=== PATIENT | female | born 1945 | race Caucasian/White ===

== ENCOUNTER 2017-09-07 17:21 | Inpatient (IN) | payer MEDICARE ==
[~2017-09-07] VITALS: Ht 160 cm; Wt 84.7 kg
--- NOTE | ~2017-09-07 | PN ---
PATIENT:LISET VALENZUELA MEDICAL RECORD: [id number] LOCATION:D.[facility].211 ADMISSION DATE: 09/07/17 PROGRESS NOTE DATE OF SERVICE: 10/03/2017 HISTORY OF PRESENT ILLNESS: This is a 72-year-old female who has a history of asthma. The patient has had increasing shortness of breath recently, was admitted for shortness of breath and wheezes. Also, has sleep apnea and has a CPAP at home, but rarely uses a CPAP machine. The patient is on BiPAP at night and p.r.n. for the daytime. This patient feels improved, has been in physical therapy today. There is no fever or chills. PHYSICAL EXAMINATION: GENERAL: Reveals a well-developed, well-nourished female patient in no acute distress. VITAL SIGNS: Temperature 98.1, heart rate of 81, respiratory rate of 18, blood pressure 115/63, saturation 96%. SHEENT: Unremarkable. NECK: Supple. No adenopathy. NECK: Trachea is midline. CHEST: Clear. No wheezes or crackles. HEART: Shows no jugular venous distention, murmur, or gallop. ABDOMEN: Benign. EXTREMITIES: Shows no clubbing, cyanosis or edema. LABORATORY DATA: Showed white count 11.9, hemoglobin 8.4. Chest x-ray shows elevation of the right hemidiaphragm, persistent right perihilar and lower lobe airspace disease. ASSESSMENT: 1. Right lower lobe pneumonia. The patient is currently on antibiotics. 2. Asthma. The patient is improving with bronchodilators. 3. Obstructive sleep apnea. The patient is noncompliant with CPAP at home. The patient has been advised to use CPAP every day. She may need to follow up with the pulmonary clinic care. Continue bronchodilators. 4. Continue antibiotics. 5. DVT prophylaxis with Lovenox. 6. Increase physical activity. TRANSINT:[id number] Voice Confirmation ID: [id number] DOCUMENT ID: [id number] FROY ASHFORD at 1307 CC: [id number] DICTATION DATE: 10/03/17 2148 PICKING BELT OPERATOR: 10/04/17 0302 DIS IN 10/06/17 [id number] [place] [address]
--- NOTE | ~2017-09-07 | PN ---
PATIENT:LISET VALENZUELA MEDICAL RECORD: [id number] LOCATION:D.[facility].211 ADMISSION DATE: 09/07/17 PROGRESS NOTE DATE OF SERVICE: 10/04/2017 This is a 72-year-old female who had acute respiratory failure with hypoxemia, has also had asthma in the past. She has had acute kidney injury. SUBJECTIVE: The patient states that her breathing is improved and that she is able to do more physical therapy. She is not coughing. There is no shortness of breath. She is able to walk a little bit more distance today. She has had constipation, requests laxative or stool softener. PHYSICAL EXAMINATION: GENERAL: Physical exam reveals an elderly female who is in no acute distress. VITAL SIGNS: Temperature 98.4, heart rate of 92, respiratory rate 17, blood pressure 142/70, saturation 97%. SHEENT: Unremarkable. NECK: Supple. LUNGS: Clear with no wheezes or crackles. HEART: Exam shows no jugular venous distention, no murmur or gallop. ABDOMEN: Benign without any tenderness, there is mild distention. EXTREMITIES: No clubbing, cyanosis or edema. LABORATORY DATA: White count 10.5, hemoglobin 8.7, and platelet count is 215,000. Arterial blood gas, pH 7.41, pCO2 of 64, pO2 of 115, bicarbonate is 40. Chemistry is remarkable for carbon dioxide of 36, creatinine 2.2. ASSESSMENT: 1. Acute respiratory failure with exacerbation, improved. 2. Metabolic alkalosis. This may be due to dehydration or volume depletion. 3. Obstipation. PLAN: 1. Milk of magnesia for obstipation. 2. May need to increase fluid intake. 3. Continue bronchodilators. DISPOSITION: To rehabilitation. TRANSINT:[id number] Voice Confirmation ID: [id number] DOCUMENT ID: [id number] PROGRESS NOTE [id number] LISET VALENZUELA FROY ASHFORD at 1307 CC: [id number] DICTATION DATE: 10/04/172112 LACTATION NURSE: 10/05/173 DIS IN 10/06/17 [address] [place] [address]
--- NOTE | ~2017-09-07 | MORECARE ---
CASE MANAGEMENT DISCHARGE SUMMARY PATIENT: LISET VALENZUELA UNIT: [id number] ADM DATE: 09/07/17 AGE: 72 : 44 SEX: F ROOM/BED: D.4072 AUTHOR: CASE, MRI CT TECH PHYSICIAN: REFERRING PHYSICIAN: WENDY MILLS MD DATE OF SERVICE: 09/07/17 Discharge Plan Patient Name: LISET VALENZUELA Facility: [facility]:Paulina : 1945 Planned Disposition: Home with Home Health Anticipated Discharge Date: 09/28/17 Discharge Date: Expected LOS: 21 Initial Reviewer: [email or web address] Initial Review Date: 09/12/2017 Generated: 09/28/17 4:17 pm Comments DCP- Discharge Planning Updated by [email or web address]: Akshat Baldwin on 09/28/17 2:[address] Patient Name: LISET VALENZUELA Encounter No: [id number] : 1945 Primary Insurance: [facility] MEDICARE SOLUTIONS Anticipated DC Date: 09-28-2017 Planned Disposition: Home with Home Health External Planned Provider: NO PROVIDER PREFERENCE DCP follow-up note: CM RECEIVED CALL FROM PT'S DAUGHTER IN LAW, JOE MARROQUIN, WHO INFORMED CM THAT PT HAS BEEN DECLINED BY [facility] PT IS TOO HIGH LEVEL FUNCTIONING. CM DISCUSSED OUTPATIENT REHAB VS HOME HEALTH. JOE REPORTS PT WILL NEED HOME HEALTH AND ASKED CM TO TALK TO PT. CM MET WITH PT IN ROOM TO DISCUSS DISCHARGE NEEDS AND PLANNING. CM DISCUSSED AVAILABILITY OF HOME HEALTH, REHAB SERVICES AND MEDICAL EQUIPMENT WELL DECLINATIONS BY INPATIENT REHAB AND [facility].. PT AGREES THAT HOME HEALTH WOULD BE BEST OPTION FOR HER, FAMILY TO TRANSPORT HOME AT DISCHARGE. CHOICE LETTER INDICATING NO PROVIDER PREFERNCE SIGNED BY PT.] CM TO ARRANGE HOME HEALTH FOR OBSERVATION AND ASSESSMENT AND PHYSICAL THERAPY WITH ANY AVAILABLE PROVIDER FOR DISCHARGE HOME WITH PHYSICIAN AGREEMENT AND SPECIFIC HOME HEALTH ORDERS. WARREN Melvin DCP- Discharge Planning Updated by [email or web address]: Askhat Baldwin on 09/27/17 11:[address] Patient Name: LISET VALENZUELA Admission Status: ER Accout number: [id number] Admission Date: 09-07-2017 : 1945 Admission Diagnosis:SHORTNESS OF BREATH Attending: WENDY CEBALLOS Current LOS: 20 Anticipated DC Date: 09-28-2017 Planned Disposition: [facility] Facility Primary Insurance: [facility] MEDICARE SOLUTIONS PLANNED EXTERNAL PROVIDER: [facility] MEDICARE REHAB BED Discharge Planning Comments: CM CALLED [facility], SPOKE TO TYSON AT [phone], REHAB BED AVAILABLE, TYSON AND ADMISSION TEAM WILL SCREEN FOR REHAB ADMISSION. CM FAXED REFERRAL TO [facility] AT [phone]. CM WAITING ADMISSION DETERMINATION AND INSURANCE AUTHORIZATION OR DENIAL FOR REHAB SERVICES AT [facility]. Paraffin Plant Operator: Akshat Baldwin DCP- Discharge Planning Updated by [id number]: Akshat Baldwin on 09/26/17 4:[address] Patient Name: LISET VALENZUELA Encounter No: [id number] : 1945 Primary Insurance: [facility] MEDICARE SOLUTIONS Anticipated DC Date: 09-28-2017 Planned Disposition: [facility] Facility External Planned Provider: [facility] MEDICARE REHAB BED DCP follow-up note: CM SPOKE TO LISET OF INPATIENT REHAB AT [place] LISET REPORTS PHYSICAL AND SPEECH THERAPY HAVE BOTH SIGNED OFF ON PT AND SHE IS TOO HIGH FUNCTIONING FOR INPATIENT REHAB. CM DISCUSSED REHAB OPTIONS, LOCATIONS AND PROVIDERS WITH PT. PT DOES NOT FEEL SAFE TO HOME WITH HOME HEALTH OR TO GO TO OUTPATIENT THERAPY; PT WOULD LIKE REHAB AT [facility] IF POSSIBLE, CHOICE SIGNED. IMPORTANT MESSAGE FROM MEDICARE PROVIDED AND EXPLAINED. CM TO SEND REHAB REFERRAL TO [facility] SOON POSSIBLE. Akshat Baldwin, WARREN MANAGEMENT DCP- Discharge Planning Updated by [id number]: Akshat Baldwin on 09/22/17 3:[address] Patient Name: LISET VALENZUELA Encounter No: [id number] : 1945 Primary Insurance: [facility] MEDICARE SOLUTIONS Anticipated DC Date: 09-23-2017 Planned Disposition: INPATIENT REHAB External Planned Provider: [facility] INPATIENT REHAB DCP follow-up note: CM RECEIVED ORDER FOR INPATIENT REHAB PRESCREENING. CM MET WITH PT AND DAUGHTER IN LAW IN ROOM TO DISCUSS DISCHARGE PLANNING AND NEEDS. LISET D NICOLAS provided verbal consent to discuss current and ongoing needs with/in the presence of: DAUGHTER IN LAW, JOE LOPEZ. CM DISCUSSED AVAILABILITY OF INPATIENT REHAB, PRISON REHAB WELL LOCATIONS AND PROVIDERS. PT WANTS REHAB AT [facility] AND UNDERSTANDS THAT HER INSURANCE HAS TO APPROVE IT WELL REHAB HAVING TO ACCEPT. IMPORTANT MESSAGE FROM MEDICARE PROVIDED AND EXPLAINED. CM WAITING INPATIENT REHAB PRESCREENING WELL INSURANCE AUTHORIZATION OR DENIAL FOR INPATIENT REHAB SERVICES AT [facility]. Akshat Baldwin, CASE MANAGEMENT DCP- Discharge Planning Updated by [id number]: Akshat Baldwin on 09/12/17 3:[address] Patient Name: LISET VALENZUELA Admission Status: ER Accout number: [id number] Admission Date: 09-07-2017 : 1945 Admission Diagnosis: Attending: WENDY CEBALLOS Current LOS: 5 Anticipated DC Date: Planned Disposition: Home Primary Insurance: [facility] MEDICARE SOLUTIONS Discharge Planning Comments: * Is the patient Alert and Oriented? Yes 0 * How many steps to enterexit or inside your home? 2 0 * PCP [facility] OBANDO ON [facility] IN [place] 0 * Pharmacy [facility] OR [facility] ORDER 0 * Preadmission Environment Home Alone 0 * ADLs Independent 0 * Equipment Glucometer 0 * Other Equipment PT'S NEBULIZER 10 YEARS OLD AND INOPERATIVE NO MEDICAL EQUIPMENT PROVIDER PREFERENCE 0 * List name and contact numbers for known caregivers / representatives who currently or will assist patient after discharge: JOE MARROQUIN, DTR IN LAW, CARYN MARROQUIN, SON, 0 * Verbal permission to speak to the caregivers and representatives has been obtained from the patient. Yes 0 * Community resources currently utilized None 0 * Please name any agencies selected above. NONE 0 * Additional services required to return to the preadmission environment? No 0 * Can the patient safely return to the preadmission environment? Yes 0 * Has this patient been hospitalized within the prior 30 days at any hospital? No 0 CM MET WITH PT AND SON IN ROOM TO DISCUSS DISCHARGE PLANNING AND NEEDS. LISET VALENZUELA provided verbal consent to discuss current and ongoing needs with/in the presence of: SON, CARYN MARROQUIN. PT REPORTS LIVING AT HOME INDEPENDENTLY AND ALONE; PT'S 15 YEAR OLD GRAND DAUGHTER HAS BEEN STAYING WITH PT AT HOME TO ASSIST WITH COOKING AND CLEANING, PT'S SON LIVES ABOUT 1 MILE AWAY. PT HAS GLUCOMETER WITH MEDICAL EQUIPMENT PROVIDER PREFERENCE OF [facility] AND NO OUTSIDE SERVICES ASSISTING IN THE HOME. CM DISCUSSED AVAILABILITY OF HOME HEALTH, REHAB SERVICES AND MEDICAL EQUIPMENT. PT REPORTS IF SHE NEEDS NEBULIZED MEDICATIONS, SHE NEEDS A NEW NEBULIZER AND STATES SHE MIGHT NEED OXYGEN TO GO HOME. PT REPORTS HER SON WILL PICK HER UP FOR DISCHARGE HOME. IMPORTANT MESSAGE FROM MEDICARE PROVIDED AND EXPLAINED. IF PT NEEDS NEBULIZED MEDICATIONS AT HOME, SHE WILL NEED NEW NEBULIZER ORDER FOR CM TO OBTAIN FROM [facility]. PT MAY REQUIRE HOME OXYGEN TESTING PRIOR TO DISCHARGE TO DETERMINE HOME NEED. CM TO CONTINUE TO FOLLOW AND ASSIST IF NEEDED. Paraffin Plant Operator: Akshat Baldwin DCPIA - Discharge Planning Initial Assessment Updated by [email or web address]: Akshat Baldwin on 09/12/17 4:11 pm * Is the patient Alert and Oriented? Yes * How many steps to enterexit or inside your home? * PCP [facility] OBANDO ON [facility] [place] * Pharmacy [facility] [place] OR [facility] * Preadmission Environment Home Alone * ADLs Independent * Equipment Glucometer * Other Equipment PT'S NEBULIZER 10 YEARS OLD AND INOPERATIVE NO MEDICAL EQUIPMENT PROVIDER PREFERENCE * List name and contact numbers for known caregivers / representatives who currently or will assist patient after discharge: JOE MARROQUIN, DTR IN LAW, CARYN MARROQUIN, SON, * Verbal permission to speak to the caregivers and representatives has been obtained from the patient. Yes * Community resources currently utilized None * Please name any agencies selected above. NONE * Additional services required to return to the preadmission environment? No * Can the patient safely return to the preadmission environment? Yes * Has this patient been hospitalized within the prior 30 days at any hospital? No External Providers External Provider: [facility] Next Contact Date: 09/27/2017 Service Request Date: Service Type: Resolution: Reviewer: Comments: Coverage Notice Reviewer: [email or web address] - Akshat Baldwin Notice Issued Date-Time: 09/12/2017 15:58 Notice Type: IM Discharge Notice Notice Delivered To: Patient Relationship to Patient: Mobile Device Engineer Name: Delivery Method: HAND - Hand Delivered Mya Days: Prior Verbal Notification: Recipient Understood Notice: Yes Recipient Signature: Yes Med Rec Note Co-signed by Attending: Coverage Notice Comment: Reviewer: GERMAINE Baldwin Notice Issued Date-Time: 09/22/2017 15:30 Notice Type: IM Discharge Notice Notice Delivered To: Family Member Relationship to Patient: Daughter in Law Mobile Device Engineer Name: JOE MARROQUIN Delivery Method: HAND - Hand Delivered Mya Days: Prior Verbal Notification: Recipient Understood Notice: Yes Recipient Signature: Yes Med Rec Note Co-signed by Attending: Coverage Notice Comment: Reviewer: GERMAINE Baldwin Notice Issued Date-Time: 09/26/2017 14:45 Notice Type: IM Discharge Notice Notice Delivered To: Patient Relationship to Patient: Mobile Device Engineer Name: Delivery Method: HAND - Hand Delivered Mya Days: Prior Verbal Notification: Recipient Understood Notice: Yes Recipient Signature: Yes Med Rec Note Co-signed by Attending: Coverage Notice Comment: Reviewer: GERMAINE Baldwin Notice Issued Date-Time: 09/28/2017 15:00 Notice Type: Patient Choice Letter Notice Delivered To: Patient Relationship to Patient: Mobile Device Engineer Name: Delivery Method: HAND - Hand Delivered Mya Days: Prior Verbal Notification: Recipient Understood Notice: Yes Recipient Signature: Yes Med Rec Note Co-signed by Attending: Coverage Notice Comment: NO HOME HEALTH PROVIDER PREFERENCE Patient Name: LISET VALENZUELA Page [phone] All edits/amendments must be made on the electronic document DICTATION DATE: 09/28/171516 [place]EN[place]SE OR NURSERY TRANSPLANTER: 09/28/171516 RPT#: [id number] DC DATE: STATUS: ADM IN [facility] [address] [place] [address] END OF REPORT
--- NOTE | ~2017-09-07 | PN ---
PATIENT:LISET VALENZUELA MEDICAL RECORD: [id number] LOCATION:D. D.211 ADMISSION DATE: 09/07/17 PROGRESS NOTE DATE OF SERVICE: 10/05/2017 SUBJECTIVE: This is a 72-year-old female who has had history of mild aortic stenosis as well as abnormal left ventricular ejection fraction. The patient was admitted for increasing shortness of breath and weakness. We treated with bronchodilators. With bronchodilators, the patient has had improvement. Her symptoms have improved with physical therapy. The patient is scheduled to be discharged in the morning. PHYSICAL EXAMINATION: GENERAL: Reveals elderly female, who is in no acute distress. VITAL SIGNS: Temperature 97.9, heart rate of 98, respiratory rate of 18, blood pressure 115/55. SHEENT: Unremarkable. NECK: Supple. CHEST: Clear and symmetric. No accessory muscle use. CARDIAC: Shows no jugular venous distention, murmur, or gallop. ABDOMEN: Benign. EXTREMITIES: No clubbing, cyanosis, or edema. LABORATORY DATA: White count 11.4, hemoglobin 8.9, and platelet count is 214. Chemistry is unremarkable for potassium of 5.0 and creatinine is 2.1. ASSESSMENT: 1. Acute asthmatic bronchitis. 2. Asthma. 3. Acute kidney injury. The patient has improved considerably. Agree with the patient's discharge in the morning. We will sign off. If needed, please call the pulmonary team. TRANSINT:[id number] Voice Confirmation ID: [id number] DOCUMENT ID: [id number] FROY ASHFORD at 1307 CC: [id number] DICTATION DATE: 10/05/17 1659 GRAPHICS COORDINATOR: 10/05/17 2316 DIS IN 10/06/17 [facility] [id number]
[2017-09-07] MEDS ORDERED: NEURONTIN 300300 MG PO (17:36)
[2017-09-07] MEDS ORDERED: GLUCOTROL 5 MG T5 MG PO (17:36)
[2017-09-07] MEDS ORDERED: OMEPRAZOLE20 M1 PO (17:36)
[2017-09-07] MEDS ORDERED: NORVASC5 MG PO (17:37)
[2017-09-07 18:26] LABS: BASOPHILS 0.8 % (0-2); EOSINOPHILS 1.5 % (0-7); HEMATOCRIT 35.5 % (36.0-48.0); HEMOGLOBIN 10.9 g/dL (12-16); IMMATURE GRANULOCYTES 0.7 % (0-5); MCHC 30.7 g/dL (31.0-37.0); MCV 91.3 fL (80.0-100.0); MEAN PLATELET VOLUME 9.8 fL (7.4-10.4); MONOCYTES 8.1 % (2-11); NEUTROPHILS 55.9 % (40-80); PLATELET COUNT 295 10x3/uL (130-400); RBC 3.89 10x6/uL (4.00-5.40); WBC 12.5 10x3/uL (4.8-10.8)
[2017-09-07 18:46] LABS: ALBUMIN 3.1 g/dL (3.4-5.0); ALKALINE PHOSPHATASE 159 U/L (46-116); ALT (SGPT) 18 U/L (10-68); BILIRUBIN - TOTAL 0.39 mg/dL (0.2-1.3); CALC OSMOLALITY 290 mosm/kg (275-300); CALCIUM 8.8 mg/dL (8.5-10.1); CARBON DIOXIDE 28.5 mmol/L (21.0-32.0); CHLORIDE - SERUM 105 mmol/L (98-107); CREATININE - SERUM 1.9 mg/dL (0.6-1.3); POTASSIUM - SERUM 4.9 mmol/L (3.5-5.1); PROTEIN - SERUM 8.1 g/dL (6.4-8.2); SODIUM 139 mmol/L (136-145); UREA NITROGEN 32 mg/dL (7-18); eGFR NON AFRICAN AMERICAN 27 mL/min (90-120)
[2017-09-07 18:48] LABS: GLUCOSE 214 mg/dL (74-106)
[2017-09-07 19:01] LABS: CKMB 2.1 U/L (0.0-3.6); CREATINE KINASE 66 UL (21-215); PRO BNP 3729 pg/mL (0-125)
[2017-09-07 19:02] LABS: TROPONIN-I < 0.017 ng/mL (0.000-0.060)
[2017-09-07 21:06] VITALS: BP 179/77
[2017-09-07 22:01] LABS: CREATINE KINASE 67 UL (21-215)
[2017-09-07 22:02] LABS: TROPONIN-I < 0.017 ng/mL (0.000-0.060)
[2017-09-07 22:48] VITALS: BP 157/76
[2017-09-07] MEDS ORDERED: PROAIR HFA8.5 GM INH (22:56)
[2017-09-08 01:16] VITALS: BP 145/70
[2017-09-08 02:47] LABS: BASOPHILS 0.3 % (0-2); EOSINOPHILS 0.1 % (0-7); HEMATOCRIT 33.2 % (36.0-48.0); HEMOGLOBIN 10.2 g/dL (12-16); IMMATURE GRANULOCYTES 0.8 % (0-5); LYMPHOCYTES 14.5 % (15-50); MCH 27.7 pg (26.0-34.0); MCHC 30.7 g/dL (31.0-37.0); MCV 90.2 fL (80.0-100.0); MEAN PLATELET VOLUME 9.6 fL (7.4-10.4); MONOCYTES 0.9 % (2-11); NEUTROPHILS 83.4 % (40-80); PLATELET COUNT 281 10x3/uL (130-400); RBC 3.68 10x6/uL (4.00-5.40); RDW 16.3 % (11.5-14.5); WBC 11.8 10x3/uL (4.8-10.8)
[2017-09-08 03:10] LABS: CALCIUM 8.2 mg/dL (8.5-10.1); CHLORIDE - SERUM 102 mmol/L (98-107); CREATINE KINASE 62 UL (21-215); MAGNESIUM - SERUM 1.8 mg/dL (1.8-2.4); POTASSIUM - SERUM 5.3 mmol/L (3.5-5.1); SODIUM 135 mmol/L (136-145); TROPONIN-I < 0.017 ng/mL (0.000-0.060); UREA NITROGEN 33 mg/dL (7-18)
[2017-09-08 03:11] LABS: CALC OSMOLALITY 286 mosm/kg (275-300); CKMB 4.6 U/L (0.0-3.6); CREATININE - SERUM 0.4 mg/dL (0.6-1.3); GLUCOSE 273 mg/dL (74-106); eGFR NON AFRICAN AMERICAN > 90 mL/min (90-120)
[2017-09-08 04:30] VITALS: BP 138/70
[2017-09-08 08:01] VITALS: BP 135/69
[2017-09-08 08:37] LABS: CKMB 1.7 U/L (0.0-3.6); CREATINE KINASE 55 UL (21-215)
[2017-09-08 08:38] LABS: TROPONIN-I < 0.017 ng/mL (0.000-0.060)
[2017-09-08 11:21] VITALS: BP 124/71
[2017-09-08 12:28] VITALS: BMI 31.8
[2017-09-08 15:33] VITALS: BP 131/74
[2017-09-08 20:57] VITALS: BP 135/64
[2017-09-09 04:00] VITALS: BP 129/65
[2017-09-09 08:30] VITALS: BP 134/63
[2017-09-09 12:01] VITALS: BP 126/59
[2017-09-09 12:58] LABS: BASOPHILS 0.2 % (0-2); EOSINOPHILS 1.5 % (0-7); HEMATOCRIT 33.3 % (36.0-48.0); HEMOGLOBIN 10.2 g/dL (12-16); IMMATURE GRANULOCYTES 0.3 % (0-5); LYMPHOCYTES 30.4 % (15-50); MCH 28.2 pg (26.0-34.0); MCHC 30.6 g/dL (31.0-37.0); MEAN PLATELET VOLUME 9.7 fL (7.4-10.4); MONOCYTES 9.7 % (2-11); NEUTROPHILS 57.9 % (40-80); PLATELET COUNT 304 10x3/uL (130-400); RBC 3.62 10x6/uL (4.00-5.40); RDW 17.1 % (11.5-14.5); WBC 18.6 10x3/uL (4.8-10.8)
[2017-09-09 13:23] LABS: ALBUMIN 3.3 g/dL (3.4-5.0); ANION GAP 12.2 mmol/L (8-16); BILIRUBIN - TOTAL 0.21 mg/dL (0.2-1.3); CALCIUM 8.2 mg/dL (8.5-10.1); CARBON DIOXIDE 31.2 mmol/L (21.0-32.0); PROTEIN - SERUM 7.6 g/dL (6.4-8.2)
[2017-09-09 13:24] LABS: CREATININE - SERUM 2.5 mg/dL (0.6-1.3); POTASSIUM - SERUM 3.4 mmol/L (3.5-5.1)
[2017-09-09 16:14] VITALS: BP 123/61
[2017-09-09 20:00] VITALS: BP 125/61
[2017-09-10] VITALS: BP 116/55
[2017-09-10 04:00] VITALS: BP 128/58
[2017-09-10 04:53] LABS: BASOPHILS 0.3 % (0-2); EOSINOPHILS 2.9 % (0-7); HEMATOCRIT 31.9 % (36.0-48.0); HEMOGLOBIN 9.4 g/dL (12-16); IMMATURE GRANULOCYTES 0.2 % (0-5); MCH 27.7 pg (26.0-34.0); MCHC 29.5 g/dL (31.0-37.0); MCV 94.1 fL (80.0-100.0); MEAN PLATELET VOLUME 9.8 fL (7.4-10.4); MONOCYTES 9.7 % (2-11); NEUTROPHILS 48.9 % (40-80); PLATELET COUNT 277 10x3/uL (130-400); RBC 3.39 10x6/uL (4.00-5.40); RDW 17.4 % (11.5-14.5)
[2017-09-10 05:07] LABS: ANION GAP 6.7 mmol/L (8-16); CALCIUM 8.2 mg/dL (8.5-10.1); CARBON DIOXIDE 33.3 mmol/L (21.0-32.0); CREATININE - SERUM 2.8 mg/dL (0.6-1.3)
[2017-09-10 07:59] VITALS: BP 120/58
[2017-09-10 11:06] VITALS: BP 129/55
[2017-09-10 15:06] VITALS: BP 117/59
[2017-09-10 20:00] VITALS: BP 125/56
[2017-09-11] VITALS: BP 138/64
[2017-09-11 04:00] VITALS: BP 124/58
[2017-09-11 05:10] LABS: BASOPHILS 0.2 % (0-2); EOSINOPHILS 2.7 % (0-7); HEMATOCRIT 30.7 % (36.0-48.0); HEMOGLOBIN 9.4 g/dL (12-16); IMMATURE GRANULOCYTES 0.2 % (0-5); LYMPHOCYTES 29.1 % (15-50); MCH 28.2 pg (26.0-34.0); MCHC 30.6 g/dL (31.0-37.0); MCV 92.2 fL (80.0-100.0); MEAN PLATELET VOLUME 9.7 fL (7.4-10.4); MONOCYTES 11.1 % (2-11); NEUTROPHILS 56.7 % (40-80); PLATELET COUNT 252 10x3/uL (130-400); RBC 3.33 10x6/uL (4.00-5.40); RDW 16.8 % (11.5-14.5); WBC 12.5 10x3/uL (4.8-10.8)
[2017-09-11 05:24] LABS: ANION GAP 7.1 mmol/L (8-16); CALCIUM 8.1 mg/dL (8.5-10.1); CARBON DIOXIDE 32.2 mmol/L (21.0-32.0); CREATININE - SERUM 2.6 mg/dL (0.6-1.3); POTASSIUM - SERUM 4.3 mmol/L (3.5-5.1)
[2017-09-11 08:43] VITALS: BP 117/66
[2017-09-11 11:19] VITALS: BP 121/69
[2017-09-11 15:27] VITALS: BP 136/74
[2017-09-11 16:13] LABS: APPEARANCE CLEAR (CLEAR); BILIRUBIN NEGATIVE (NEGATIVE); COLOR YELLOW (YELLOW); GLUCOSE NEGATIVE (NEGATIVE); KETONE NEGATIVE (NEGATIVE); NITRITE NEGATIVE (NEGATIVE); PROTEIN TRACE mg/dL (NEGATIVE); SPECIFIC GRAVITY 1.015 (1.005-1.020); UROBILINOGEN NORMAL (NORMAL)
[2017-09-11 20:00] VITALS: BP 129/62
[2017-09-12] VITALS: BP 132/61
[2017-09-12 04:00] VITALS: BP 123/58
[2017-09-12 06:10] LABS: BASOPHILS 0.1 % (0-2); EOSINOPHILS 1.5 % (0-7); IMMATURE GRANULOCYTES 0.4 % (0-5); LYMPHOCYTES 34.8 % (15-50); MCH 27.6 pg (26.0-34.0); MEAN PLATELET VOLUME 9.1 fL (7.4-10.4); MONOCYTES 10.4 % (2-11); NEUTROPHILS 52.8 % (40-80); RBC 3.26 10x6/uL (4.00-5.40); RDW 16.6 % (11.5-14.5); WBC 13.5 10x3/uL (4.8-10.8)
[2017-09-12 06:16] LABS: PLATELET COUNT 198 10x3/uL (130-400)
[2017-09-12 06:38] LABS: ANION GAP 9.6 mmol/L (8-16); CALCIUM 8.1 mg/dL (8.5-10.1); CARBON DIOXIDE 32.7 mmol/L (21.0-32.0); CREATININE - SERUM 2.4 mg/dL (0.6-1.3); POTASSIUM - SERUM 4.3 mmol/L (3.5-5.1)
[2017-09-12 08:47] VITALS: BP 127/58
[2017-09-12 15:11] LABS: % SATURATION 8 % (15-55); IRON 22 ug/dl (35-150); TOTAL IRON BIND CAPACITY 257 ug/dl (260-445); UNSAT IRON BIND CAPACITY 235 ug/dl (150-375)
[2017-09-12 17:26] VITALS: BP 140/66
[2017-09-12 20:00] VITALS: BP 144/65
[2017-09-13] VITALS: BP 99/57
[2017-09-13 05:40] LABS: BASOPHILS 0.1 % (0-2); EOSINOPHILS 1.9 % (0-7); HEMOGLOBIN 9.2 g/dL (12-16); IMMATURE GRANULOCYTES 0.2 % (0-5); LYMPHOCYTES 37.8 % (15-50); MCH 27.2 pg (26.0-34.0); MCHC 29.7 g/dL (31.0-37.0); MCV 91.7 fL (80.0-100.0); MEAN PLATELET VOLUME 9.5 fL (7.4-10.4); MONOCYTES 12.1 % (2-11); NEUTROPHILS 47.9 % (40-80); PLATELET COUNT 197 10x3/uL (130-400); RBC 3.38 10x6/uL (4.00-5.40); WBC 13.4 10x3/uL (4.8-10.8)
[2017-09-13 05:57] LABS: ANION GAP 6.4 mmol/L (8-16); CALCIUM 8.4 mg/dL (8.5-10.1); CARBON DIOXIDE 33.7 mmol/L (21.0-32.0); CREATININE - SERUM 2.1 mg/dL (0.6-1.3); POTASSIUM - SERUM 4.1 mmol/L (3.5-5.1)
[2017-09-13 08:33] VITALS: BP 153/70
[2017-09-13 09:12] LABS: FOLATE (FOLIC ACID) - SERUM 7.5 ng/mL (>3.0)
[2017-09-13 11:43] VITALS: BP 162/89
[2017-09-13 15:42] VITALS: BP 120/60
[2017-09-13 20:23] VITALS: BP 94/70
[2017-09-14 00:47] VITALS: BP 112/44
[2017-09-14 06:01] VITALS: BP 147/67
[2017-09-14 06:32] LABS: BASOPHILS 0.2 % (0-2); EOSINOPHILS 1.9 % (0-7); HEMOGLOBIN 9.1 g/dL (12-16); IMMATURE GRANULOCYTES 0.4 % (0-5); LYMPHOCYTES 35.8 % (15-50); MCH 27.5 pg (26.0-34.0); MCHC 30.3 g/dL (31.0-37.0); MCV 90.6 fL (80.0-100.0); MEAN PLATELET VOLUME 9.9 fL (7.4-10.4); NEUTROPHILS 48.7 % (40-80); PLATELET COUNT 200 10x3/uL (130-400); RBC 3.31 10x6/uL (4.00-5.40); RDW 16.1 % (11.5-14.5); WBC 13.9 10x3/uL (4.8-10.8)
[2017-09-14 06:53] LABS: ANION GAP 10.1 mmol/L (8-16); CALCIUM 8.3 mg/dL (8.5-10.1); CARBON DIOXIDE 31.8 mmol/L (21.0-32.0); POTASSIUM - SERUM 3.9 mmol/L (3.5-5.1)
[2017-09-14 08:08] VITALS: BP 156/66
[2017-09-14 15:25] VITALS: BP 134/62
[2017-09-14 18:50] LABS: MONO NEGATIVE (NEGATIVE)
[2017-09-14 19:08] LABS: ERYTHROCYTE SEDIMENTATION RATE 100 mm/hr (0-30)
[2017-09-14 20:22] VITALS: BP 142/61
[2017-09-15 00:20] VITALS: BP 148/68
[2017-09-15 05:45] LABS: BASOPHILS 0.4 % (0-2); EOSINOPHILS 1.7 % (0-7); HEMATOCRIT 30.4 % (36.0-48.0); HEMOGLOBIN 9.1 g/dL (12-16); IMMATURE GRANULOCYTES 0.4 % (0-5); MCH 27.5 pg (26.0-34.0); MCHC 29.9 g/dL (31.0-37.0); MCV 91.8 fL (80.0-100.0); MEAN PLATELET VOLUME 9.8 fL (7.4-10.4); MONOCYTES 10.9 % (2-11); NEUTROPHILS 61.6 % (40-80); PLATELET COUNT 183 10x3/uL (130-400); RBC 3.31 10x6/uL (4.00-5.40); WBC 10.8 10x3/uL (4.8-10.8)
[2017-09-15 05:53] VITALS: BP 122/57
[2017-09-15 05:59] LABS: ANION GAP 8.9 mmol/L (8-16); CALCIUM 8.5 mg/dL (8.5-10.1); CARBON DIOXIDE 33.7 mmol/L (21.0-32.0)
[2017-09-15 06:03] LABS: POTASSIUM - SERUM 4.6 mmol/L (3.5-5.1)
[2017-09-15 08:33] VITALS: BP 122/69
[2017-09-15 12:55] VITALS: BP 134/65
[2017-09-15 15:38] VITALS: BP 139/59
[2017-09-15 20:00] VITALS: BP 148/60
[2017-09-16] VITALS: BP 106/55
[2017-09-16 04:00] VITALS: BP 103/63
[2017-09-16 04:53] LABS: BASOPHILS 0.2 % (0-2); EOSINOPHILS 1.6 % (0-7); HEMATOCRIT 28.1 % (36.0-48.0); HEMOGLOBIN 8.7 g/dL (12-16); IMMATURE GRANULOCYTES 0.3 % (0-5); LYMPHOCYTES 24.1 % (15-50); MCV 90.4 fL (80.0-100.0); MEAN PLATELET VOLUME 9.3 fL (7.4-10.4); NEUTROPHILS 64.8 % (40-80); PLATELET COUNT 164 10x3/uL (130-400); RBC 3.11 10x6/uL (4.00-5.40); RDW 15.4 % (11.5-14.5); WBC 12.5 10x3/uL (4.8-10.8)
[2017-09-16 05:14] LABS: CALCIUM 8.6 mg/dL (8.5-10.1); CARBON DIOXIDE 32.5 mmol/L (21.0-32.0); CREATININE - SERUM 2.2 mg/dL (0.6-1.3); POTASSIUM - SERUM 4.5 mmol/L (3.5-5.1)
[2017-09-16 09:30] VITALS: BP 134/60
[2017-09-16 12:47] VITALS: BP 138/67
[2017-09-16 13:20] LABS: EBV - EARLY ANTIGEN AB IGG 59.3 U/mL (0.0-8.9); EBV - NUCLEAR ANTIGEN AB IGG >600.0 U/mL (0.0-17.9); EBV VIRAL CAPSID AB IGG >600.0 U/mL (0.0-17.9); EBV VIRAL CAPSID AB IGM <36.0 U/mL (0.0-35.9)
[2017-09-16 16:54] VITALS: BP 140/67
[2017-09-16 20:30] VITALS: BP 143/67
[2017-09-17] VITALS: BP 134/62
[2017-09-17 04:00] VITALS: BP 134/63
[2017-09-17 05:29] LABS: BASOPHILS 0.3 % (0-2); EOSINOPHILS 0.7 % (0-7); HEMATOCRIT 29.4 % (36.0-48.0); HEMOGLOBIN 8.6 g/dL (12-16); IMMATURE GRANULOCYTES 0.3 % (0-5); LYMPHOCYTES 16.6 % (15-50); MCHC 29.3 g/dL (31.0-37.0); MCV 92.2 fL (80.0-100.0); MEAN PLATELET VOLUME 9.8 fL (7.4-10.4); MONOCYTES 10.9 % (2-11); NEUTROPHILS 71.2 % (40-80); PLATELET COUNT 191 10x3/uL (130-400); RBC 3.19 10x6/uL (4.00-5.40); RDW 15.5 % (11.5-14.5); WBC 11.6 10x3/uL (4.8-10.8)
[2017-09-17 05:46] LABS: ANION GAP 4.2 mmol/L (8-16); CALCIUM 8.8 mg/dL (8.5-10.1); CARBON DIOXIDE 34.4 mmol/L (21.0-32.0); CREATININE - SERUM 2.2 mg/dL (0.6-1.3); POTASSIUM - SERUM 4.6 mmol/L (3.5-5.1)
[2017-09-17 08:23] LABS: IMMUNOGLOBULIN A 170 mg/dL (64-422); IMMUNOGLOBULIN G 1021 mg/dL (700-1600)
[2017-09-17 08:24] VITALS: BP 127/62
[2017-09-17 12:50] VITALS: BP 132/62
[2017-09-17 16:30] VITALS: BP 135/62
[2017-09-17 20:30] VITALS: BP 136/65
[2017-09-18] VITALS (17 sets, daily range): BP systolic 107–166; BP diastolic 48–80
[2017-09-18 06:16] LABS: BASOPHILS 0.2 % (0-2); EOSINOPHILS 0.4 % (0-7); HEMATOCRIT 31.2 % (36.0-48.0); HEMOGLOBIN 9.1 g/dL (12-16); IMMATURE GRANULOCYTES 0.9 % (0-5); LYMPHOCYTES 23.1 % (15-50); MCH 27.2 pg (26.0-34.0); MCHC 29.2 g/dL (31.0-37.0); MCV 93.1 fL (80.0-100.0); MEAN PLATELET VOLUME 9.7 fL (7.4-10.4); MONOCYTES 11.1 % (2-11); NEUTROPHILS 64.3 % (40-80); PLATELET COUNT 187 10x3/uL (130-400); RBC 3.35 10x6/uL (4.00-5.40); RDW 15.3 % (11.5-14.5)
[2017-09-18 06:38] LABS: CALCIUM 8.7 mg/dL (8.5-10.1); CARBON DIOXIDE 33.6 mmol/L (21.0-32.0); CREATININE - SERUM 2.2 mg/dL (0.6-1.3); POTASSIUM - SERUM 4.6 mmol/L (3.5-5.1)
[2017-09-18 14:18] LABS: APPEARANCE CLEAR (CLEAR); BILIRUBIN NEGATIVE (NEGATIVE); COLOR YELLOW (YELLOW); GLUCOSE NEGATIVE (NEGATIVE); KETONE NEGATIVE (NEGATIVE); NITRITE NEGATIVE (NEGATIVE); PROTEIN 2+ mg/dL (NEGATIVE); UROBILINOGEN NORMAL (NORMAL)
[2017-09-18 14:20] LABS: AMORPHOUS SEDIMENT <1+ /lpf (NONE SEEN); BACTERIA FEW /hpf (NONE SEEN); EPITHELIAL CELLS OCC /hpf (0-5); RED CELLS - URINE 0-5 /hpf (0-5); WHITE CELLS - URINE OCC /hpf (0-5)
[2017-09-19] VITALS (25 sets, daily range): BP systolic 107–145; BP diastolic 27–88; Ht 160 cm; Wt 84.7 kg
[2017-09-19 02:28] LABS: HEMATOCRIT 28.2 % (36.0-48.0); HEMOGLOBIN 8.8 g/dL (12-16); LYMPHOCYTES 14.9 % (15-50); MCH 28.4 pg (26.0-34.0); MCHC 31.2 g/dL (31.0-37.0); MEAN PLATELET VOLUME 9.4 fL (7.4-10.4); NEUTROPHILS 75.9 % (40-80); PLATELET COUNT 157 10x3/uL (130-400); RDW 14.6 % (11.5-14.5); WBC 9.3 10x3/uL (4.8-10.8)
[2017-09-19 02:44] LABS: ALBUMIN 2.6 g/dL (3.4-5.0); ALKALINE PHOSPHATASE 120 U/L (46-116); ALT (SGPT) 22 U/L (10-68); BILIRUBIN - TOTAL 0.27 mg/dL (0.2-1.3); CALCIUM 8.3 mg/dL (8.5-10.1); CARBON DIOXIDE 38.1 mmol/L (21.0-32.0); CHLORIDE - SERUM 96 mmol/L (98-107); CREATININE - SERUM 2.2 mg/dL (0.6-1.3); MAGNESIUM - SERUM 2.4 mg/dL (1.8-2.4); PHOSPHOROUS 5.4 mg/dL (2.5-4.9); POTASSIUM - SERUM 4.4 mmol/L (3.5-5.1); PRO BNP 1679 pg/mL (0-125); PROTEIN - SERUM 6.8 g/dL (6.4-8.2); SODIUM 135 mmol/L (136-145); UREA NITROGEN 65 mg/dL (7-18); eGFR NON AFRICAN AMERICAN 23 mL/min (90-120)
[2017-09-19 02:45] LABS: CALC OSMOLALITY 284 mosm/kg (275-300); GLUCOSE 30 mg/dL (74-106); TROPONIN-I < 0.017 ng/mL (0.000-0.060)
[2017-09-20] VITALS (25 sets, daily range): BP systolic 121–163; BP diastolic 62–80
[2017-09-20 04:59] LABS: BASOPHILS 0.2 % (0-2); EOSINOPHILS 1.4 % (0-7); HEMATOCRIT 28.3 % (36.0-48.0); HEMOGLOBIN 8.7 g/dL (12-16); IMMATURE GRANULOCYTES 0.3 % (0-5); LYMPHOCYTES 35.7 % (15-50); MCH 27.5 pg (26.0-34.0); MCHC 30.7 g/dL (31.0-37.0); MCV 89.6 fL (80.0-100.0); MEAN PLATELET VOLUME 9.1 fL (7.4-10.4); MONOCYTES 9.4 % (2-11); PLATELET COUNT 170 10x3/uL (130-400); RBC 3.16 10x6/uL (4.00-5.40); RDW 15.1 % (11.5-14.5)
[2017-09-20 05:00] LABS: WBC 11.8 10x3/uL (4.8-10.8)
[2017-09-20 05:05] LABS: ANION GAP 6.5 mmol/L (8-16); CALCIUM 8.3 mg/dL (8.5-10.1); CARBON DIOXIDE 37.7 mmol/L (21.0-32.0); CREATININE - SERUM 2.1 mg/dL (0.6-1.3); POTASSIUM - SERUM 4.2 mmol/L (3.5-5.1)
[2017-09-20 08:24] LABS: IMMUNOGLOBULIN E 171 IU/mL (0-100)
[2017-09-21] VITALS (17 sets, daily range): BP systolic 97–164; BP diastolic 66–737
[2017-09-21 05:33] LABS: BASOPHILS 0.2 % (0-2); EOSINOPHILS 2.4 % (0-7); HEMATOCRIT 29.4 % (36.0-48.0); HEMOGLOBIN 9.1 g/dL (12-16); IMMATURE GRANULOCYTES 0.3 % (0-5); LYMPHOCYTES 31.9 % (15-50); MCH 27.8 pg (26.0-34.0); MCV 89.9 fL (80.0-100.0); MONOCYTES 11.7 % (2-11); NEUTROPHILS 53.5 % (40-80); RBC 3.27 10x6/uL (4.00-5.40); RDW 15.2 % (11.5-14.5); WBC 13.9 10x3/uL (4.8-10.8)
[2017-09-21 05:52] LABS: PLATELET COUNT 211 10x3/uL (130-400)
[2017-09-21 06:00] LABS: ANION GAP 5.1 mmol/L (8-16); CALCIUM 8.5 mg/dL (8.5-10.1); CARBON DIOXIDE 39.1 mmol/L (21.0-32.0); CREATININE - SERUM 1.9 mg/dL (0.6-1.3); POTASSIUM - SERUM 4.2 mmol/L (3.5-5.1)
[2017-09-22 01:17] VITALS: BP 126/60
[2017-09-22 04:00] VITALS: BP 116/65
[2017-09-22 06:10] LABS: HEMATOCRIT 30.8 % (36.0-48.0); HEMOGLOBIN 9.9 g/dL (12-16); LYMPHOCYTES 29.4 % (15-50); MCH 28.4 pg (26.0-34.0); MCHC 32.1 g/dL (31.0-37.0); MCV 88.3 fL (80.0-100.0); MEAN PLATELET VOLUME 9.3 fL (7.4-10.4); NEUTROPHILS 61.7 % (40-80); PLATELET COUNT 207 10x3/uL (130-400); RBC 3.49 10x6/uL (4.00-5.40); RDW 14.8 % (11.5-14.5); WBC 13.2 10x3/uL (4.8-10.8)
[2017-09-22 06:17] LABS: ANION GAP 6.8 mmol/L (8-16); CALCIUM 8.8 mg/dL (8.5-10.1); CARBON DIOXIDE 39.7 mmol/L (21.0-32.0); CREATININE - SERUM 1.7 mg/dL (0.6-1.3); POTASSIUM - SERUM 4.5 mmol/L (3.5-5.1)
[2017-09-22 08:22] VITALS: BP 125/62
[2017-09-22 11:34] VITALS: BP 119/64
[2017-09-22 15:57] VITALS: BP 142/50
[2017-09-22 21:29] VITALS: BP 138/67
[2017-09-23 01:30] VITALS: BP 146/63
[2017-09-23 05:12] LABS: BASOPHILS 0.1 % (0-2); EOSINOPHILS 2.6 % (0-7); HEMATOCRIT 30.1 % (36.0-48.0); HEMOGLOBIN 9.5 g/dL (12-16); IMMATURE GRANULOCYTES 0.2 % (0-5); LYMPHOCYTES 27.4 % (15-50); MCH 27.9 pg (26.0-34.0); MCHC 31.6 g/dL (31.0-37.0); MCV 88.5 fL (80.0-100.0); MEAN PLATELET VOLUME 9.4 fL (7.4-10.4); MONOCYTES 11.5 % (2-11); NEUTROPHILS 58.2 % (40-80); PLATELET COUNT 189 10x3/uL (130-400); RDW 15.3 % (11.5-14.5); WBC 13.7 10x3/uL (4.8-10.8)
[2017-09-23 05:24] LABS: CALCIUM 8.9 mg/dL (8.5-10.1); CARBON DIOXIDE 39.9 mmol/L (21.0-32.0); CREATININE - SERUM 1.9 mg/dL (0.6-1.3); POTASSIUM - SERUM 3.9 mmol/L (3.5-5.1)
[2017-09-23 06:03] VITALS: BP 127/55
[2017-09-23 08:26] VITALS: BP 119/64
[2017-09-23 12:27] VITALS: BP 131/73
[2017-09-23 16:40] VITALS: BP 111/54
[2017-09-23 21:17] VITALS: BP 129/64
[2017-09-23 23:51] LABS: APTT 40.4 SECONDS (22.8-39.4); INR 1.11 (0.85-1.17); PROTIME 13.9 SECONDS (11.6-15.0)
[2017-09-24 01:26] VITALS: BP 126/57
[2017-09-24 05:31] LABS: BASOPHILS 0.2 % (0-2); EOSINOPHILS 2.5 % (0-7); HEMATOCRIT 27.9 % (36.0-48.0); HEMOGLOBIN 8.7 g/dL (12-16); IMMATURE GRANULOCYTES 0.3 % (0-5); MCH 27.4 pg (26.0-34.0); MCHC 31.2 g/dL (31.0-37.0); MEAN PLATELET VOLUME 9.7 fL (7.4-10.4); MONOCYTES 11.6 % (2-11); NEUTROPHILS 59.4 % (40-80); PLATELET COUNT 192 10x3/uL (130-400); RBC 3.17 10x6/uL (4.00-5.40); RDW 15.4 % (11.5-14.5)
[2017-09-24 05:39] VITALS: BP 121/60
[2017-09-24 05:57] LABS: ANION GAP 4.4 mmol/L (8-16); CALCIUM 8.7 mg/dL (8.5-10.1); CARBON DIOXIDE 38.6 mmol/L (21.0-32.0)
[2017-09-24 08:57] VITALS: BP 132/64
[2017-09-24 11:51] VITALS: BP 123/65
[2017-09-24 15:51] VITALS: BP 129/68
[2017-09-24 20:00] VITALS: BP 126/69
[2017-09-25] VITALS: BP 114/63
[2017-09-25 04:00] VITALS: BP 169/67
[2017-09-25 08:05] VITALS: BP 111/65
[2017-09-25 08:13] LABS: BASOPHILS 0.4 % (0-2); EOSINOPHILS 3.4 % (0-7); HEMATOCRIT 31.6 % (36.0-48.0); HEMOGLOBIN 9.8 g/dL (12-16); IMMATURE GRANULOCYTES 0.7 % (0-5); LYMPHOCYTES 28.2 % (15-50); MCH 27.8 pg (26.0-34.0); MCV 89.5 fL (80.0-100.0); MONOCYTES 10.4 % (2-11); NEUTROPHILS 56.9 % (40-80); PLATELET COUNT 198 10x3/uL (130-400); RBC 3.53 10x6/uL (4.00-5.40); RDW 15.2 % (11.5-14.5); WBC 13.3 10x3/uL (4.8-10.8)
[2017-09-25 08:26] LABS: ALBUMIN 2.5 g/dL (3.4-5.0); ANION GAP 5.4 mmol/L (8-16); BILIRUBIN - TOTAL 0.3 mg/dL (0.2-1.3); CALCIUM 9.6 mg/dL (8.5-10.1); POTASSIUM - SERUM 4.6 mmol/L (3.5-5.1); PROTEIN - SERUM 7.4 g/dL (6.4-8.2)
[2017-09-25 08:40] LABS: CARBON DIOXIDE 44.2 mmol/L (21.0-32.0)
[2017-09-25 11:18] VITALS: BP 118/62
[2017-09-25 15:14] VITALS: BP 121/63
[2017-09-25 20:30] VITALS: BP 120/60
[2017-09-26 04:30] VITALS: BP 144/72
[2017-09-26 06:50] LABS: BASOPHILS 0.6 % (0-2); HEMATOCRIT 29.3 % (36.0-48.0); IMMATURE GRANULOCYTES 0.4 % (0-5); LYMPHOCYTES 27.4 % (15-50); MCH 27.5 pg (26.0-34.0); MCHC 30.7 g/dL (31.0-37.0); MCV 89.6 fL (80.0-100.0); MEAN PLATELET VOLUME 9.3 fL (7.4-10.4); MONOCYTES 10.7 % (2-11); NEUTROPHILS 56.9 % (40-80); PLATELET COUNT 204 10x3/uL (130-400); RBC 3.27 10x6/uL (4.00-5.40); RDW 15.3 % (11.5-14.5); WBC 13.2 10x3/uL (4.8-10.8)
[2017-09-26 07:10] LABS: CALCIUM 9.2 mg/dL (8.5-10.1); CREATININE - SERUM 2.3 mg/dL (0.6-1.3); POTASSIUM - SERUM 4.2 mmol/L (3.5-5.1)
[2017-09-26 07:13] LABS: ANION GAP 6.2 mmol/L (8-16)
[2017-09-26 07:27] LABS: INR 1.1 (0.85-1.17); PROTIME 13.6 SECONDS (11.6-15.0)
[2017-09-26 07:29] LABS: APTT 32.6 SECONDS (22.8-39.4)
[2017-09-26 08:46] VITALS: BP 104/47
[2017-09-26 11:45] VITALS: BP 139/67
[2017-09-26 15:59] VITALS: BP 167/88
[2017-09-26 20:00] VITALS: BP 134/65
[2017-09-27] VITALS: BP 119/62
[2017-09-27 05:53] LABS: BASOPHILS 0.5 % (0-2); EOSINOPHILS 3.4 % (0-7); HEMATOCRIT 28.8 % (36.0-48.0); HEMOGLOBIN 8.9 g/dL (12-16); IMMATURE GRANULOCYTES 0.4 % (0-5); LYMPHOCYTES 29.7 % (15-50); MCH 27.5 pg (26.0-34.0); MCHC 30.9 g/dL (31.0-37.0); MCV 88.9 fL (80.0-100.0); MEAN PLATELET VOLUME 9.7 fL (7.4-10.4); PLATELET COUNT 228 10x3/uL (130-400); RBC 3.24 10x6/uL (4.00-5.40); RDW 15.2 % (11.5-14.5); WBC 13.1 10x3/uL (4.8-10.8)
[2017-09-27 06:15] LABS: ANION GAP 5.6 mmol/L (8-16); CALCIUM 8.9 mg/dL (8.5-10.1); CARBON DIOXIDE 39.3 mmol/L (21.0-32.0); CREATININE - SERUM 2.3 mg/dL (0.6-1.3); POTASSIUM - SERUM 3.9 mmol/L (3.5-5.1)
[2017-09-27 06:37] VITALS: BP 134/71
[2017-09-27 07:30] VITALS: BP 118/63
[2017-09-27 11:00] VITALS: BP 139/70
[2017-09-27 15:12] LABS: APPEARANCE HAZY (CLEAR); BILIRUBIN NEGATIVE (NEGATIVE); COLOR YELLOW (YELLOW); GLUCOSE NEGATIVE (NEGATIVE); KETONE NEGATIVE (NEGATIVE); NITRITE NEGATIVE (NEGATIVE); PROTEIN 1+ mg/dL (NEGATIVE); SPECIFIC GRAVITY 1.015 (1.005-1.020); UROBILINOGEN NORMAL (NORMAL)
[2017-09-27 15:13] LABS: BACTERIA MODERATE /hpf (NONE SEEN); EPITHELIAL CELLS 0-5 /hpf (0-5); WHITE CELLS - URINE 0-5 /hpf (0-5); YEAST >1+ /hpf (NONE SEEN)
[2017-09-27 15:47] VITALS: BP 128/60
[2017-09-27 20:00] VITALS: BP 165/72
[2017-09-28] VITALS: BP 151/71
[2017-09-28 04:00] VITALS: BP 170/80
[2017-09-28 04:44] LABS: BASOPHILS 0.4 % (0-2); EOSINOPHILS 3.7 % (0-7); HEMATOCRIT 30.1 % (36.0-48.0); HEMOGLOBIN 9.6 g/dL (12-16); IMMATURE GRANULOCYTES 0.4 % (0-5); LYMPHOCYTES 32.2 % (15-50); MCH 28.3 pg (26.0-34.0); MCHC 31.9 g/dL (31.0-37.0); MCV 88.8 fL (80.0-100.0); MEAN PLATELET VOLUME 9.5 fL (7.4-10.4); NEUTROPHILS 52.3 % (40-80); PLATELET COUNT 226 10x3/uL (130-400); RBC 3.39 10x6/uL (4.00-5.40); WBC 13.7 10x3/uL (4.8-10.8)
[2017-09-28 05:07] LABS: ANION GAP 4.9 mmol/L (8-16); CALCIUM 9.1 mg/dL (8.5-10.1); CREATININE - SERUM 2.2 mg/dL (0.6-1.3); POTASSIUM - SERUM 3.9 mmol/L (3.5-5.1)
[2017-09-28 07:57] VITALS: BP 130/64
[2017-09-28 12:02] VITALS: BP 141/75
[2017-09-28 16:12] VITALS: BP 104/55
[2017-09-28 20:06] VITALS: BP 120/55
[2017-09-29] VITALS: BP 105/49
[2017-09-29 04:00] VITALS: BP 133/65
[2017-09-29 05:17] LABS: BASOPHILS 0.4 % (0-2); EOSINOPHILS 3.7 % (0-7); HEMATOCRIT 28.1 % (36.0-48.0); HEMOGLOBIN 8.7 g/dL (12-16); IMMATURE GRANULOCYTES 0.4 % (0-5); LYMPHOCYTES 32.7 % (15-50); MCH 27.5 pg (26.0-34.0); MCV 88.9 fL (80.0-100.0); MEAN PLATELET VOLUME 9.8 fL (7.4-10.4); NEUTROPHILS 51.8 % (40-80); PLATELET COUNT 217 10x3/uL (130-400); RBC 3.16 10x6/uL (4.00-5.40); RDW 15.1 % (11.5-14.5); WBC 12.6 10x3/uL (4.8-10.8)
[2017-09-29 05:31] LABS: ANION GAP 6.4 mmol/L (8-16); CALCIUM 8.8 mg/dL (8.5-10.1); CARBON DIOXIDE 37.5 mmol/L (21.0-32.0); CREATININE - SERUM 2.4 mg/dL (0.6-1.3); POTASSIUM - SERUM 3.9 mmol/L (3.5-5.1)
[2017-09-29 07:46] VITALS: BP 117/58
[2017-09-29 11:43] VITALS: BP 144/70
[2017-09-29 15:29] VITALS: BP 140/65
[2017-09-29 20:00] VITALS: BP 129/57
[2017-09-30 04:00] VITALS: BP 140/54
[2017-09-30 05:49] LABS: BASOPHILS 0.4 % (0-2); EOSINOPHILS 3.2 % (0-7); HEMATOCRIT 27.5 % (36.0-48.0); HEMOGLOBIN 8.4 g/dL (12-16); IMMATURE GRANULOCYTES 0.4 % (0-5); LYMPHOCYTES 27.9 % (15-50); MCH 27.1 pg (26.0-34.0); MCHC 30.5 g/dL (31.0-37.0); MCV 88.7 fL (80.0-100.0); MEAN PLATELET VOLUME 9.4 fL (7.4-10.4); NEUTROPHILS 58.1 % (40-80); PLATELET COUNT 197 10x3/uL (130-400); RDW 14.9 % (11.5-14.5); WBC 13.5 10x3/uL (4.8-10.8)
[2017-09-30 06:11] LABS: ANION GAP 8.5 mmol/L (8-16); CALCIUM 8.7 mg/dL (8.5-10.1); CARBON DIOXIDE 33.7 mmol/L (21.0-32.0); CREATININE - SERUM 2.5 mg/dL (0.6-1.3); POTASSIUM - SERUM 4.2 mmol/L (3.5-5.1)
[2017-09-30 07:50] VITALS: BP 112/68
[2017-09-30 11:12] VITALS: BP 119/66
[2017-09-30 16:09] VITALS: BP 122/69
[2017-09-30 20:00] VITALS: BP 143/69
[2017-10-01] VITALS: BP 149/68
[2017-10-01 04:00] VITALS: BP 134/70
[2017-10-01 05:04] LABS: BASOPHILS 0.5 % (0-2); EOSINOPHILS 3.4 % (0-7); HEMATOCRIT 27.3 % (36.0-48.0); HEMOGLOBIN 8.4 g/dL (12-16); IMMATURE GRANULOCYTES 0.4 % (0-5); LYMPHOCYTES 30.9 % (15-50); MCH 27.3 pg (26.0-34.0); MCHC 30.8 g/dL (31.0-37.0); MCV 88.6 fL (80.0-100.0); MEAN PLATELET VOLUME 9.6 fL (7.4-10.4); MONOCYTES 9.1 % (2-11); NEUTROPHILS 55.7 % (40-80); PLATELET COUNT 232 10x3/uL (130-400); RBC 3.08 10x6/uL (4.00-5.40); WBC 12.7 10x3/uL (4.8-10.8)
[2017-10-01 05:23] LABS: ANION GAP 7.1 mmol/L (8-16); CALCIUM 8.8 mg/dL (8.5-10.1); CARBON DIOXIDE 35.2 mmol/L (21.0-32.0); CREATININE - SERUM 2.4 mg/dL (0.6-1.3); POTASSIUM - SERUM 4.3 mmol/L (3.5-5.1)
[2017-10-01 07:44] VITALS: BP 138/66
[2017-10-01 11:23] VITALS: BP 129/88
[2017-10-01 14:56] VITALS: BP 125/63
[2017-10-01 20:30] VITALS: BP 130/64
[2017-10-02 05:52] LABS: BASOPHILS 0.3 % (0-2); EOSINOPHILS 3.4 % (0-7); HEMATOCRIT 26.6 % (36.0-48.0); HEMOGLOBIN 8.1 g/dL (12-16); IMMATURE GRANULOCYTES 0.5 % (0-5); LYMPHOCYTES 32.9 % (15-50); MCHC 30.5 g/dL (31.0-37.0); MCV 88.7 fL (80.0-100.0); MEAN PLATELET VOLUME 9.6 fL (7.4-10.4); MONOCYTES 8.2 % (2-11); NEUTROPHILS 54.7 % (40-80); PLATELET COUNT 212 10x3/uL (130-400); RDW 14.9 % (11.5-14.5); WBC 12.5 10x3/uL (4.8-10.8)
[2017-10-02 06:06] LABS: ANION GAP 8.9 mmol/L (8-16); CALCIUM 8.6 mg/dL (8.5-10.1); CARBON DIOXIDE 32.5 mmol/L (21.0-32.0); CREATININE - SERUM 2.5 mg/dL (0.6-1.3); POTASSIUM - SERUM 4.4 mmol/L (3.5-5.1)
[2017-10-02 07:55] VITALS: BP 133/62
[2017-10-02 11:33] VITALS: BP 142/59
[2017-10-02 15:30] VITALS: BP 128/65
[2017-10-02 21:07] VITALS: BP 133/58
[2017-10-03 01:16] VITALS: BP 122/60
[2017-10-03 05:10] VITALS: BP 121/54
[2017-10-03 06:25] LABS: BASOPHILS 0.4 % (0-2); EOSINOPHILS 2.5 % (0-7); HEMATOCRIT 27.4 % (36.0-48.0); HEMOGLOBIN 8.4 g/dL (12-16); IMMATURE GRANULOCYTES 0.4 % (0-5); LYMPHOCYTES 35.8 % (15-50); MCH 27.4 pg (26.0-34.0); MCHC 30.7 g/dL (31.0-37.0); MCV 89.3 fL (80.0-100.0); MEAN PLATELET VOLUME 9.9 fL (7.4-10.4); MONOCYTES 8.9 % (2-11); PLATELET COUNT 224 10x3/uL (130-400); RBC 3.07 10x6/uL (4.00-5.40); RDW 14.9 % (11.5-14.5); WBC 11.9 10x3/uL (4.8-10.8)
[2017-10-03 06:44] LABS: ANION GAP 8.6 mmol/L (8-16); CALCIUM 8.8 mg/dL (8.5-10.1); CARBON DIOXIDE 33.2 mmol/L (21.0-32.0); CREATININE - SERUM 2.4 mg/dL (0.6-1.3); POTASSIUM - SERUM 4.8 mmol/L (3.5-5.1)
[2017-10-03 10:00] VITALS: BP 115/63
[2017-10-04 04:00] VITALS: BP 138/64
[2017-10-04 04:54] LABS: BASOPHILS 0.4 % (0-2); EOSINOPHILS 3.2 % (0-7); HEMOGLOBIN 8.7 g/dL (12-16); IMMATURE GRANULOCYTES 0.2 % (0-5); LYMPHOCYTES 33.3 % (15-50); MCH 27.9 pg (26.0-34.0); MCHC 31.1 g/dL (31.0-37.0); MCV 89.7 fL (80.0-100.0); MEAN PLATELET VOLUME 9.6 fL (7.4-10.4); NEUTROPHILS 54.9 % (40-80); PLATELET COUNT 215 10x3/uL (130-400); RBC 3.12 10x6/uL (4.00-5.40); RDW 14.9 % (11.5-14.5); WBC 10.5 10x3/uL (4.8-10.8)
[2017-10-04 05:22] LABS: ANION GAP 6.2 mmol/L (8-16); CALCIUM 8.9 mg/dL (8.5-10.1); CARBON DIOXIDE 35.8 mmol/L (21.0-32.0); CREATININE - SERUM 2.2 mg/dL (0.6-1.3)
[2017-10-04 18:50] VITALS: BP 130/60
[2017-10-04 20:31] VITALS: BP 142/70
[2017-10-05 01:15] VITALS: BP 120/61
[2017-10-05 05:40] VITALS: BP 131/66
[2017-10-05 07:06] LABS: BASOPHILS 0.4 % (0-2); EOSINOPHILS 2.9 % (0-7); HEMATOCRIT 27.8 % (36.0-48.0); HEMOGLOBIN 8.5 g/dL (12-16); IMMATURE GRANULOCYTES 0.4 % (0-5); LYMPHOCYTES 29.8 % (15-50); MCH 27.3 pg (26.0-34.0); MCHC 30.6 g/dL (31.0-37.0); MCV 89.4 fL (80.0-100.0); MEAN PLATELET VOLUME 9.7 fL (7.4-10.4); MONOCYTES 7.8 % (2-11); NEUTROPHILS 58.7 % (40-80); PLATELET COUNT 214 10x3/uL (130-400); RBC 3.11 10x6/uL (4.00-5.40); RDW 14.9 % (11.5-14.5); WBC 11.4 10x3/uL (4.8-10.8)
[2017-10-05 07:49] LABS: ALBUMIN 2.4 g/dL (3.4-5.0); ANION GAP 10.4 mmol/L (8-16); BILIRUBIN - TOTAL 0.29 mg/dL (0.2-1.3); CALCIUM 8.8 mg/dL (8.5-10.1); CARBON DIOXIDE 32.6 mmol/L (21.0-32.0); CREATININE - SERUM 2.1 mg/dL (0.6-1.3); MAGNESIUM - SERUM 1.9 mg/dL (1.8-2.4); PROTEIN - SERUM 7.1 g/dL (6.4-8.2)
[2017-10-05 08:52] VITALS: BP 111/70
[2017-10-05] MEDS ORDERED: ATROVENT 0.02%2.5 ML UPD (10:43)
[2017-10-05] MEDS ORDERED: XOPENEX 0.0.63 MG/3 UPD (10:44)
[2017-10-05] MEDS ORDERED: COLACE100 MG PO (10:44)
[2017-10-05] MEDS ORDERED: FLUTICASONE PRO16 GM NASAL (10:45)
[2017-10-05] MEDS ORDERED: MUCINEX DM ER1 EAC1 PO (10:45)
[2017-10-05] MEDS ORDERED: PULMICORT0.5 MG/21 UPD (10:45)
[2017-10-05] MEDS ORDERED: TESSALON PERLE100 MG PO (10:45)
[2017-10-05] MEDS ORDERED: SINGULAIR10 MG PO (10:45)
[2017-10-05] MEDS ORDERED: DIFLUCAN100 MG PO (10:55)
[2017-10-05 11:41] VITALS: BP 115/55
[2017-10-05 15:31] VITALS: BP 126/68
[2017-10-05 21:02] VITALS: BP 140/69
[2017-10-06 06:11] VITALS: BP 125/68
[2017-10-06 06:12] LABS: BASOPHILS 0.3 % (0-2); EOSINOPHILS 3.5 % (0-7); HEMATOCRIT 26.6 % (36.0-48.0); HEMOGLOBIN 8.1 g/dL (12-16); IMMATURE GRANULOCYTES 0.2 % (0-5); LYMPHOCYTES 34.8 % (15-50); MCH 27.4 pg (26.0-34.0); MCHC 30.5 g/dL (31.0-37.0); MCV 89.9 fL (80.0-100.0); MEAN PLATELET VOLUME 10.1 fL (7.4-10.4); MONOCYTES 7.1 % (2-11); NEUTROPHILS 54.1 % (40-80); PLATELET COUNT 212 10x3/uL (130-400); RBC 2.96 10x6/uL (4.00-5.40); RDW 15.1 % (11.5-14.5); WBC 10.2 10x3/uL (4.8-10.8)
[2017-10-06 06:43] LABS: ANION GAP 8.2 mmol/L (8-16); CALCIUM 8.8 mg/dL (8.5-10.1); CARBON DIOXIDE 31.7 mmol/L (21.0-32.0); CREATININE - SERUM 1.9 mg/dL (0.6-1.3); POTASSIUM - SERUM 4.9 mmol/L (3.5-5.1)
[2017-10-06 08:27] VITALS: BP 127/69
== END 2017-10-06 10:46 | DRG 177 ==
LOC: D.ER 17:21 → D.EDHOLD 19:55 → D.ICU 19:55 → D.M2 19:55 → D.ICU 09-18 14:45 → D.M2 09-21 15:59
PROVIDERS: Family Medicine; Internal Medicine; Internal Medicine Nephrology; Internal Medicine Pulmonary Disease
PROC: 5A09357 Assistance with Respiratory Ventilation, Less than 24 Consecutive Hours, Continuous Positive Airway Pressure (ICD-10-PCS; principal; 2017-09-13)
PROC: 5A09457 Assistance with Respiratory Ventilation, 24-96 Consecutive Hours, Continuous Positive Airway Pressure (ICD-10-PCS; 2017-09-18)
DX: J69.0 Pneumonitis due to inhalation of food and vomit (principal); J96.01 Acute respiratory failure with hypoxia; J96.02 Acute respiratory failure with hypercapnia; I50.21 Acute systolic (congestive) heart failure; I13.0 Hypertensive heart and chronic kidney disease with heart failure and stage 1 through stage 4 chronic kidney disease, or unspecified chronic kidney disease; J45.901 Unspecified asthma with (acute) exacerbation; N17.9 Acute kidney failure, unspecified; J98.11 Atelectasis; B37.49 Other urogenital candidiasis; D50.9 Iron deficiency anemia, unspecified; I08.3 Combined rheumatic disorders of mitral, aortic and tricuspid valves; G47.33 Obstructive sleep apnea (adult) (pediatric); K21.9 Gastro-esophageal reflux disease without esophagitis; E11.649 Type 2 diabetes mellitus with hypoglycemia without coma; E11.22 Type 2 diabetes mellitus with diabetic chronic kidney disease; N18.9 Chronic kidney disease, unspecified; I27.20 Pulmonary hypertension, unspecified; J30.9 Allergic rhinitis, unspecified

== ENCOUNTER 2018-12-11 11:42 | Emergency (ER) | payer MEDICARE ==
[~2018-12-11] VITALS: Ht 160 cm; Wt 80.9 kg
[~2018-12-11 11:42] MED LIST: ATROVENT 0.02%2.5 ML UPD; COLACE100 MG PO; DIFLUCAN100 MG PO; FLUTICASONE PRO16 GM NASAL; GLUCOTROL 5 MG T5 MG PO; MUCINEX DM ER1 EAC1 PO; NEURONTIN 300300 MG PO; NORVASC5 MG PO; OMEPRAZOLE20 M1 PO; PROAIR HFA8.5 GM INH; PULMICORT0.5 MG/21 UPD; SINGULAIR10 MG PO; TESSALON PERLE100 MG PO; XOPENEX 0.0.63 MG/3 UPD
[2018-12-11 11:46] VITALS: Ht 160 cm; Wt 80.9 kg
[2018-12-11] MEDS ORDERED: HYDROCODON-ACE1 EA10 PO (13:51)
[2018-12-11 14:40] VITALS: BP 153/74
== END 2018-12-11 15:07 | disposition home or self-care (01) ==
LOC: D.ER 11:42
DX: S09.90XA Unspecified injury of head, initial encounter (principal); W10.9XXA Fall (on) (from) unspecified stairs and steps, initial encounter; S62.101A Fracture of unspecified carpal bone, right wrist, initial encounter for closed fracture; S82.001A Unspecified fracture of right patella, initial encounter for closed fracture; I10 Essential (primary) hypertension; E11.9 Type 2 diabetes mellitus without complications; K21.9 Gastro-esophageal reflux disease without esophagitis; J44.9 Chronic obstructive pulmonary disease, unspecified